=== PATIENT | male | born 1965 | race Caucasian/White ===

== ENCOUNTER 2020-03-30 06:47 | Emergency (ER) | payer SELFPAY ==
[~2020-03-30] VITALS: Ht 172.7 cm; Wt 104.3 kg
[2020-03-30] MEDS ORDERED: VENTOLIN HFA18 GM INH (07:06)
[2020-03-30] MEDS ORDERED: BACTRIM DS TAB1 EACH PO (07:48)
== END 2020-03-30 08:10 | disposition home or self-care (01) ==
LOC: ED 06:47
DX: N49.2 Inflammatory disorders of scrotum (principal)
CPT/HCPCS: 99283-25